=== PATIENT | male | born 1980 | race Caucasian/White ===

== ENCOUNTER 2020-09-07 04:47 | Emergency (ER) | payer BC, OTHER ==
[2020-09-07 07:58] LABS: HEMOGLOBIN 15.1 gm/dl (14.0-17.5); RED BLOOD COUNT 4.87 M/UL (4.20-5.50); WHITE BLOOD COUNT 5.1 K/UL (4.5-11.0)
[2020-09-07 08:18] LABS: BUN/CREATININE RATIO 16 (0-10)
[2020-09-07] MEDS ORDERED: CYCLOBENZAPRINE5 MG PO (09:42)
[2020-09-07] MEDS ORDERED: IBUPROFEN800 MG PO (09:42)
== END 2020-09-07 10:40 | disposition home or self-care (01) ==
LOC: ER1 04:47
PROVIDERS: Emergency Medicine
DX: M79.661 Pain in right lower leg (principal); Z20.822 Contact with and (suspected) exposure to COVID-19
CPT/HCPCS: 36415; 80053; 84550; 85025; 93971; 99284; U0002